=== PATIENT | female | born 1960 | race Caucasian/White ===

== ENCOUNTER 2022-06-15 09:56 | Outpatient (CLI) | payer BC, SELFPAY ==
--- NOTE | 2022-06-27 00:22 | WPDHOMESLEEP ---
Sleep Study - Home Unattended Date of Study: 06/15/22 Ordering Provider: Carlos Munroe MD Interpreting Provider: Francisca Reyes MD Home Sleep Study Type: Apnea Link Air Height: 1.69 m Weight: 102.512 kg Body Mass Index: 35.9 Neck Circumference (inches): 14.75 Kiron: 5 Reason for Sleep Study Hypersomnia Sleep History Mikala East is a 61-year-old woman with complaints of tossing and turning at night for several years. Her tells her she tstops breathing at night. She wakes up feeling tired. There is a family history of sleep issues; her son wears CPAP. On occasion, she wakes feeling short of breath. She does not wake at night with heartburn, belching or coughing. She frequently snores, occasionally loudly enough that others complain. She rarely has trouble sleeping with a cold. She does not gasp for breath at night. She has asthma, and occasionally needs to use her inhaler at night. She does not sweat excessively at night. She does not notice her heart pounding at night, She is sleepy in the day, however she is not able to fall asleep when she tries to nap. She does not fall asleep involuntarily or while driving. She does not have loss of muscle tone with strong emotion. She does not feel paralyzed on waking or falling asleep. She does not feel paralyzed on waking or falling asleep. On occasion, she has vivid dream like scenes on waking or falling asleep. She is not afreaid to go to sleep. She does not have nightmares. She occasionally remembers her dreams. She rarely has racing thoughts. She does not have depression or anxiety, She denies muscular tension, kicking at night, or notice parts of her body jerking. She has aching feelings only on her right side while sleeping, and has right leg pain at night. She does not have morning jaw pain. She does not grind her teeth at night. She frequently is bothered by pain in sahara day and awakened by pain at night. Depending on her body position in sleep, she occasionally wakes up feeling stiff with sore achy muscles or with pain in her spine. Normal bedtime is between 8pm to 10 pm, taking 30 minutes to fall asleep, tossing and turning often. She wakes to go to the bathroom, and is able to return to sleep easily. She wakes between 4 and and 7 am, depending on when she went to sleep. On weekends, bedtime is later, 11--11:30 p.m.. She does not take naps in the afternoon or evening. A short nap is not refreshing. She is drowsy for 2-3 hours after waking. She feels better in the afternoon compared to other times of day. Habits: Never smoked tobacco. Caffeine: 1 cup in the am, sometimes one serving in the afternoon. No alcohol. [facility] Past Medical History Medical History (Updated 06/27/22 @ 00:31 by Francisca Reyes MD) Abdominal discomfort, epigastric Abdominal pain (~06/2021) BMI 39.0-39.9,adult Breast cancer screening by mammogram Colon cancer screening COVID-19 (06/28/21) markedly positive antibody 07/21/2021 with level greater than 150 Cystocele Encounter for wellness examination in adult Mixed hyperlipidemia Total cholesterol 172, triglycerides 130, HDL 55, LDL 94 on 07/21/2021 Moderate persistent asthma, uncomplicated Obesity (BMI 35.0-39.9 without comorbidity) UTI (urinary tract infection) Family History Family History Mother Patient's mother is , Onset Age: 80 Father Patient's father is Social History Social History Smoking status: Never smoker Alcohol intake: current Substance use: never Substance use type: does not use Medications Home Medications Medication Instructions Recorded Confirmed Type albuterol sulfate 90 mcg/actuation 2 puff inhalation Q4-6H PRN 07/13/21 03/02/22 Rx aerosol inhaler (ProAir HFA) bronchospasm #18 grams fluticasone 100 mcg-salmeterol 50 1 inh inhalation Q12H #60 ea 07/21/21 0
[2022-06-27 12:39] VITALS: BMI 35.9
== END 2022-06-16 13:38 | disposition home or self-care (01) ==
LOC: ANHCSM 09:58
PROVIDERS: PCP Family Medicine; Visit Provider Family Medicine
DX: G47.33 Obstructive sleep apnea (adult) (pediatric) (principal); I10 Essential (primary) hypertension; E78.5 Hyperlipidemia, unspecified; J45.909 Unspecified asthma, uncomplicated
CPT/HCPCS: 95806